=== PATIENT | female | born 1955 | race Caucasian/White ===

== ENCOUNTER 2016-08-11 13:32 | Outpatient (CLI) | payer BC ==
--- NOTE | 2016-08-26 19:37 | Mammography Report ---
DIGITAL SCREENING MAMMOGRAM: 08/11/2016 CLINICAL INDICATION: A 61-year-old nulliparous patient with history of benign left breast biopsy for screening. COMPARISON: Films from [place], [place] dated 05/08/2013, 04/24/2012, 02/24/2011, 03/23/2010, 11/2009, 03/18/2009. TECHNIQUE: Routine CC and MLO projections were obtained of the breasts. The breasts again demonstrate heterogeneously dense fibroglandular parenchyma bilaterally. Coarse an d punctate, typically benign calcifications are present. No suspicious masses, clustered microcalcif ications, or regions of architectural distortion are identified. IMPRESSION: BENIGN FINDINGS. RECOMMENDATION: ROUTINE ANNUAL SCREENING UNLESS OTHERWISE CLINICALLY INDICATED. BIRADS CATEGORY: 2, BENIGN FINDINGS. STANDARD QUALIFYING STATEMENTS 1. This examination was reviewed with the aid of Computed-Aided Detection (CAD). 2. A negative or benign imaging report should not delay biopsy if clinically suspicious findings are present. Consider surgical consultation if warranted. More than 5% of cancers are not identified b y imaging. 3. Dense breasts may obscure an underlying neoplasm. JOB #: [id number] EXT JOB #:[id number]
== END 2016-08-11 13:33 | disposition home or self-care (01) ==
LOC: DI 13:32
PROVIDERS: ATTEND Physician Assistant
DX: Z12.31 Encounter for screening mammogram for malignant neoplasm of breast (principal)
CPT/HCPCS: 77067

== ENCOUNTER 2016-11-25 13:45 | Outpatient (CLI) | payer BC ==
--- NOTE | 2016-11-25 17:55 | XRAY Report ---
THREE VIEW LUMBAR SPINE: 11/25/2016 CLINICAL INDICATION: Back pain. AP, lateral, coned-down views of the lumbar spine demonstrate moderate degenerative disk and facet di sease. There is no evidence of compression fracture. Degenerative dextroscoliosis is present. The bowel gas pattern is unremarkable. IMPRESSION: MODERATE DEGENERATIVE CHANGES, WITH DEGENERATIVE DEXTROSCOLIOSIS. NO EVIDENCE OF FRACTU RE. JOB #: [id number] EXT JOB #:
--- NOTE | 2016-11-25 17:58 | XRAY Report ---
RIGHT HIP AND PELVIS: 11/25/2016 CLINICAL INDICATION: Right hip pain. Frontal view of the hips and pelvis, and frog-leg lateral view of the right hip demonstrate no eviden ce of fracture or dislocation. The joint spaces are preserved. No radiopaque foreign body is seen i n the soft tissues. IMPRESSION: NORMAL RIGHT HIP AND PELVIS. JOB #: [id number] EXT JOB #:[id number]
== END 2016-11-25 13:46 | disposition home or self-care (01) ==
LOC: DI.S 13:45
PROVIDERS: ATTEND Physician Assistant
DX: M25.551 Pain in right hip (principal); M51.36 Other intervertebral disc degeneration, lumbar region; M47.896 Other spondylosis, lumbar region; M41.86 Other forms of scoliosis, lumbar region
CPT/HCPCS: 72100

== ENCOUNTER 2017-03-08 11:51 | Outpatient (CLI) | payer OTHER ==
--- NOTE | 2017-03-08 21:02 | XRAY Report ---
DATE OF SERVICE: 03/08/2017 COMPLETE CERVICAL SPINE: 03/08/2017 CLINICAL INDICATION: Pain. AP, lateral, oblique, odontoid views of the cervical spine demonstrate moderate degenerative disk and facet disease. There is right worse than left osseous neural foraminal narrowing, worst at C5-6. There is no evidence of acute fracture. The prevertebral soft tissues are unremarkable. IMPRESSION: Moderate degenerative changes, with right worse than left osseous neural foraminal narrowing. TD: 03/08/2017 22:01
== END 2017-03-08 11:52 | disposition home or self-care (01) ==
LOC: DI.S 11:51
PROVIDERS: ATTEND Physician Assistant
DX: M50.30 Other cervical disc degeneration, unspecified cervical region (principal); M47.892 Other spondylosis, cervical region
CPT/HCPCS: 72050

== ENCOUNTER 2017-11-08 20:10 | Outpatient (CLI) | payer OTHER | END 2017-11-08 20:11 | disposition critical access hospital (66) | LOC: EMS 20:10 | PROVIDERS: ATTEND Surgery | DX: T63.441A Toxic effect of venom of bees, accidental (unintentional), initial encounter (principal); L50.9 Urticaria, unspecified; R60.0 Localized edema; Y92.007 Garden or yard of unspecified non-institutional (private) residence as the place of occurrence of the external cause | CPT/HCPCS: A0425; A0427 ==

== ENCOUNTER 2017-11-08 20:46 | Emergency (ER) | payer OTHER ==
--- NOTE | 2017-11-08 21:42 | ED Physician Documentation ---
History of Present Illness - Stated complaint Stated Complaint: BEE STING - Chief complaint Chief Complaint: Allergic Rx - History obtained from History obtained from: Patient - History of Present Illness Timing: Enter time (18:30), Today Pain level now: 0 Improved by: benadryl, epinephrine (given by medics) - Additonal information Additional information: stung by flying insect 6:30 pm tonight, rapid onset of diffuse pruritic rash, facial flushing and swelling including lips, hoarse voice, watery eyes and sinus drainage. she denies feeling lightheaded or dyspneic at any time and did not have sensation of throat swelling or constriction. took benadryl but then noticed it had . medics gave benadryl and IM epinephrine with rapid improvement in symptoms. by the time of this evaluation, she only c/o pruritic rash on trunk and right ankle (where she was stung). Review of Systems Cardiac: reports: Reviewed and negative Respiratory: reports: Reviewed and negative GI: reports: Reviewed and negative Skin: reports: Rash, Bite / sting PD PAST MEDICAL HISTORY - Past Medical History Cardiovascular: High cholesterol Respiratory: None Endocrine/Autoimmune: None GI: Diverticulitis : None HEENT: Other Psych: None Musculoskeletal: Gout Derm: None - Past Surgical History Ortho: Other HEENT: Tonsil/Adenoidectomy - Present Medications Home Medications: Ambulatory Orders Medication Instructions Recorded Confirmed Lovastatin 20 mg PO DAILY 10/14/12 09/01/15 Progesterone,Micronized 5 mg PO DAILY 10/14/12 09/01/15 [Progesterone] Epinephrine [Epipen 2-Constantine] 0.3 mg IJ ONCE PRN #1 auto.injct 11/08/17 predniSONE [Prednisone] 40 mg PO DAILY #4 tablet 11/08/17 - Allergies Allergies/Adverse Reactions: Allergies Allergy/AdvReac Type Severity Reaction Status Date / Time procaine HCl * Allergy Rash Verified 11/08/17 20:50 [From Novocain] amoxicillin trihydrate * AdvReac Hallucinati Verified 11/08/17 20:50 [From Augmentin] ons potassium clavulanate * AdvReac Hallucinati Verified 11/08/17 20:50 [From Augmentin] ons - Social History Does the pt smoke?: No Smoking Status: Never smoker Does the pt drink ETOH?: No - Immunizations Immunizations are current?: Yes PD ED PE NORMAL - Vitals Vital signs reviewed: Yes - General General: Alert and oriented X 3, No acute distress, Well developed/nourished - HEENT HEENT: Moist mucous membranes, Pharynx benign - Cardiac Cardiac: RRR, No murmur - Respiratory Respiratory: No respiratory distress, Clear bilaterally - Extremities Extremities: No edema - Neuro Neuro: Alert and oriented X 3 PD ED PE EXPANDED - Derm Derm: Urticaria (lower abdomen and back. few hives right ankle; no FB visualized) Results - Vitals Vitals: Oxygen O2 Source Room air PD MEDICAL DECISION MAKING - ED course Complexity details: considered differential, d/w patient - Sepsis Event Vital Signs: Oxygen O2 Source Room air Departure - Departure Disposition: 01 Home, Self Care Clinical Impression: Allergic reaction to bee sting Condition: Good Instructions: ED Bite Sting Insect Gen Allergic React Follow-Up: Irene Steiner PA [Primary Care Provider] - Prescriptions: Epinephrine [Epipen 2-Constantine] 0.3 mg IJ ONCE PRN #1 auto.injct PRN Reason: Anaphylaxis predniSONE [Prednisone] 40 mg PO DAILY #4 tablet Comments: Continue the benadryl 25mg-50mg by mouth every 6 hours as needed for symptoms Discharge Date/Time: 11/08/17 22:26
[2017-11-08] MEDS ORDERED: methylPREDNISolone SUCCINATE 125 MG/2 ML VIAL IVP STA (22:02)
[2017-11-08 22:20] VITALS: BP 128/74
== END 2017-11-08 22:26 | disposition home or self-care (01) ==
LOC: EDUNIT# → ED 20:46
DX: T63.441A Toxic effect of venom of bees, accidental (unintentional), initial encounter (principal); L50.9 Urticaria, unspecified
CPT/HCPCS: 96374; 99283

== ENCOUNTER 2018-08-07 13:07 | Outpatient (CLI) | payer OTHER ==
--- NOTE | 2018-08-07 16:14 | XRAY Report ---
Reason: PAIN IN RIGHT ANKLE AND JOINTS OF RIGHT FOOT Procedure Date: 08/07/2018 Accession Number: [id number] / [id number] Procedure: XR - Ankle 3 View RT CPT Code: FULL RESULT: EXAM: RIGHT ANKLE RADIOGRAPHY EXAM DATE: 08/07/2018 01:31 PM. CLINICAL HISTORY: PAIN IN RIGHT ANKLE AND JOINTS OF RIGHT FOOT. The patient fell and twisted her ankle approximately 1 month ago. Persistent right ankle pain. COMPARISON: None. TECHNIQUE: 3 views. FINDINGS: Bones: Normal. No fractures or bone lesions. Joints: Normal. No effusion. No subluxations. The ankle mortise is normally aligned. Soft Tissues: Normal. No soft tissue swelling. IMPRESSION: No fracture or dislocation of the ankle is detected. RADIA
== END 2018-08-07 13:08 | disposition home or self-care (01) ==
LOC: DI 13:07
PROVIDERS: ATTEND Nurse Practitioner Family
DX: M25.571 Pain in right ankle and joints of right foot (principal)

== ENCOUNTER 2019-01-17 10:44 | Outpatient (CLI) | payer OTHER | END 2019-01-17 10:45 | disposition short-term general hospital (02) | LOC: EMS 10:44 | PROVIDERS: ATTEND Surgery | DX: R55 Syncope and collapse (principal); H53.8 Other visual disturbances; W10.9XXA Fall (on) (from) unspecified stairs and steps, initial encounter; Y92.008 Other place in unspecified non-institutional (private) residence as the place of occurrence of the external cause | CPT/HCPCS: A0425; A0429 ==

== ENCOUNTER 2020-10-15 11:19 | Outpatient (CLI) | payer MEDICARE ==
--- NOTE | 2020-10-15 13:40 | Ultrasound Report ---
PROCEDURE: Carotid Doppler Complete INDICATIONS: TRANSIENT VISUAL LOSS TECHNIQUE: Color and pulse Doppler interrogation was performed of both carotid systems, with image documentation and velocity measurements. COMPARISON: None. FINDINGS: Right side: Brachial blood pressure: 145/79 mm Hg. Common carotid artery peak systolic velocity: 77 cm/sec. Internal carotid artery peak systolic velocity: 84 cm/sec. Internal carotid artery end diastolic velocity: 29 cm/sec. External carotid artery peak systolic velocity: 95 cm/sec. ICA/CCA peak systolic ratio: 1.1 . Anne scale imaging description: Mild calcific and soft plaque Percent internal carotid artery stenosis: Less than 50% stenosis . Vertebral artery: Flow direction is antegrade. Left side: Brachial blood pressure: 138/79 mm Hg. Common carotid artery peak systolic velocity: 89 cm/sec. Internal carotid artery peak systolic velocity: 80 cm/sec. Internal carotid artery end diastolic velocity: 33 cm/sec. External carotid artery peak systolic velocity: 86 cm/sec. ICA/CCA peak systolic ratio: 0.9 . Anne scale imaging description: Mild soft plaque Percent internal carotid artery stenosis: Less than 50% stenosis. . Vertebral artery: Flow direction is antegrade. IMPRESSION: No hemodynamically significant stenosis found through the carotid arteries bilaterally. Mild calcific and soft plaque. Incidental note was made of several small thyroid nodules which could be further as sessed by dedicated thyroid ultrasound. The estimate of stenosis included in the report of the imaging study was calculated using the NASCET method Reviewed by: Karsten Hayden MD on 10/15/2020 1:38 PM PDT Approved by: Karsten Hayden MD on 10/15/2020 1:38 PM PDT Station ID: [id number]
== END 2020-10-15 11:20 | disposition home or self-care (01) ==
LOC: DI 11:19
PROVIDERS: ATTEND Physician Assistant
DX: H53.121 Transient visual loss, right eye (principal); I65.23 Occlusion and stenosis of bilateral carotid arteries
CPT/HCPCS: 93880

== ENCOUNTER 2020-11-12 13:59 | Outpatient (CLI) | payer MEDICARE ==
--- NOTE | 2020-11-12 16:05 | Ultrasound Report ---
PROCEDURE: Head or Neck Soft Tissue INDICATIONS: THYROID NODULE TECHNIQUE: Real-time scanning was performed of the thyroid gland, with image documentation. COMPARISON: None. FINDINGS: Right: In the right superior thyroid and there is a solid nodule measuring 1.0 x 0.7 x 0.6 cm, hypoe choic with irregular margins and punctate echogenic foci. Normal size of the right thyroid lobe. Left: In the left mid thyroid there is a hypoechoic solid nodule measuring 0.4 x 0.4 x 0.3 cm, with lobulated margins and no echogenic foci. Normal size of the left thyroid lobe. Isthmus: No nodules. Normal thickness. IMPRESSION: Moderately suspicious right thyroid lobe nodule, for which FNA is recommended. Reviewed by: Shaheed Lemus MD on 11/12/2020 4:04 PM PDT Approved by: Shaheed Lemus MD on 11/12/2020 4:04 PM PDT Station ID: [id number]
== END 2020-11-12 14:00 | disposition home or self-care (01) ==
LOC: DI 13:59
PROVIDERS: ATTEND Physician Assistant
DX: E04.1 Nontoxic single thyroid nodule (principal)

== ENCOUNTER 2021-04-15 10:01 | Outpatient (CLI) | payer MEDICARE ==
[2021-04-15 15:20] LABS: BASOPHILS % (AUTO) 0.6 %; EOSINOPHILS # (AUTO) 0.1 10^3/uL (0.0-0.7); EOSINOPHILS % (AUTO) 2.1 %; HCT - HEMATOCRIT 44.7 % (37.0-47.0); HGB - HEMOGLOBIN 14.7 g/dL (12.0-16.0); LYMPHOCYTES # (AUTO) 2.1 10^3/uL (1.5-3.5); MEAN CORPUSCULAR HGB CONC 32.9 g/dL (32.0-36.0); MEAN CORPUSCULAR VOLUME 97.4 fL (81.0-99.0); MEAN PLATELET VOLUME 10.6 fL (7.9-10.8); MONOCYTES # (AUTO) 0.5 10^3/uL (0.0-1.0); MONOCYTES % (AUTO) 7.6 %; NEUTROPHILS # (AUTO) 3.9 10^3/uL (1.5-6.6); NEUTROPHILS % (AUTO) 58.6 %; PLT - PLATELET COUNT 231 10^3/uL (130-450); RED BLOOD COUNT 4.59 10^6/uL (4.20-5.40); RED CELL DISTRIBUTION WIDTH 12.6 % (12.0-15.0); WHITE BLOOD COUNT 6.7 x10^3/uL (4.8-10.8)
[2021-04-15 15:34] LABS: ALBUMIN 3.8 g/dL (3.2-5.5); ALBUMIN/GLOBULIN RATIO 1.3 (1.0-2.2); ALKALINE PHOSPHATASE 63 IU/L (42-121); ALT ALANINE AMINOTRANSFERASE 23 IU/L (10-60); AST ASPARTATE AMINOTRANSFERASE 19 IU/L (10-42); BILIRUBIN,TOTAL 0.7 mg/dL (0.2-1.0); BUN - BLOOD UREA NITROGEN 16 mg/dL (6-20); CALCIUM 9.5 mg/dL (8.5-10.3); CARBON DIOXIDE - CO2 31 mmol/L (21-32); CHLORIDE 99 mmol/L (101-111); CHOL/HDL RATIO 2.5 (<4.4); CHOLESTEROL 245 mg/dL; CK- CREATINE KINASE 26 IU/L (22-269); CREATININE 0.7 mg/dL (0.4-1.0); GFR - MDRD 84 (>89); GLUCOSE 99 mg/dL (70-100); HDL CHOLESTEROL 98 mg/dL; LDL CHOLESTEROL,CALCULATED 138 mg/dL; LDL/HDL RATIO 1.4 (<4.4); POTASSIUM 3.9 mmol/L (3.5-5.0); SODIUM 138 mmol/L (135-145); TOTAL PROTEIN 6.8 g/dL (6.7-8.2); TRIGLYCERIDES 45 mg/dL; VLDL CHOLESTEROL 9 mg/dL
[2021-04-17 09:06] LABS: HEPATITIS C ANTIBODY NON-REACTIVE (NON-REACTIVE)
== END 2021-04-15 10:02 | disposition home or self-care (01) ==
LOC: LAB.S 10:01
PROVIDERS: ATTEND Internal Medicine
DX: E78.5 Hyperlipidemia, unspecified (principal); Z13.6 Encounter for screening for cardiovascular disorders; Z79.899 Other long term (current) drug therapy; Z11.59 Encounter for screening for other viral diseases; E04.1 Nontoxic single thyroid nodule; C43.9 Malignant melanoma of skin, unspecified
CPT/HCPCS: 36415; 80053; 80061; 82550; 83721; 84443; 85025; 86803

== ENCOUNTER 2021-05-13 07:33 | Day surgery (SDC) | payer MEDICARE ==
[2021-05-13] MEDS ORDERED: LACTATED RINGERS 1,000 ML IV ONE (07:52)
--- NOTE | 2021-05-13 08:01 | ANESTHESIA ---
Pre-Anesthesia VS, & Labs - Diagnosis screening, family history of colon cancer - Procedure colonoscopy Vital Signs: Temp Pulse Resp BP Pulse Ox 36.6 C 75 16 131/84 H 98 05/13/21 07:53 05/13/21 07:53 05/13/21 07:53 05/13/21 07:53 05/13/21 07:53 Height: 5 ft 3 in Weight (kg): 75.6 kg Body Mass Index: 29.5 BMI Classification: Overweight - NPO >8 hours - Is Patient ?: No - Lab Results Lab results reviewed: Yes Home Medications and Allergies Home Medications: Ambulatory Orders Venlafaxine [Effexor] 37.5 mg PO DAILY 05/12/21 Lovastatin 60 mg PO DAILY 10/14/12 Progesterone,Micronized [Progesterone] 5 mg PO DAILY 10/14/12 Venlafaxine [Effexor] 37.5 mg PO DAILY 05/12/21 Allergies/Adverse Reactions: Allergies Allergy/AdvReac Type Severity Reaction Status Date / Time procaine HCl * Allergy Rash Verified 05/13/21 07:58 [From Novocain] amoxicillin trihydrate * AdvReac Hallucinati Verified 05/13/21 07:58 [From Augmentin] ons potassium clavulanate * AdvReac Hallucinati Verified 05/13/21 07:58 [From Augmentin] ons Anes History & Medical History - Anesthetic History Anesthesia Complications: reports: No previous complications Family history of Anesthesia Complications: Denies Family history of Malignant Hyperthermia: Denies - Medical History Cardiovascular: reports: High cholesterol Pulmonary: reports: None Gastrointestinal: reports: Diverticulitis Urinary: reports: None Musculoskeletal: reports: Gout Endocrine/Autoimmune: reports: None Skin: reports: None Smoking Status: Never smoker - Surgical History Eyes Ears Nose Throat (EENT): reports: Tonsil/Adenoidectomy Orthopedic: reports: Other Exam General: Alert, Oriented x3, Cooperative, No acute distress Dental: WNL Mouth Openin Fingerbreadth Neck Mobility: Normal Plan Anesthesia Type: General, Total IV Consent for Procedure(s) Verified and Reviewed: Yes Code Status: Attempt Resuscitation ASA classification: 2-Mild systemic disease Is this case an emergency?: No
[2021-05-13] MEDS ORDERED: LACTATED RINGERS 600 ML IV ONE (09:35)
[2021-05-13 10:04] VITALS: BP 92/67
--- NOTE | 2021-05-13 10:40 | ANESTHESIA POST OP EVALUATION ---
Anesthesia Post Eval - Post Anesthesia Eval Vitals: Last Vital Signs Temp 36.5 C 05/13/21 10:03 Pulse 90 05/13/21 10:03 Resp 16 05/13/21 10:03 BP 92/67 05/13/21 10:03 Pulse Ox 100 05/13/21 10:03 CV Function Including HR & BP: Stable Pain Control: Satisfactory Nausea & Vomiting: Negative Mental Status: Baseline Respiratory Status: Airway Patent Hydration Status: Satisfactory Anesthesia Complications: None
== END 2021-05-13 07:34 | disposition home or self-care (01) ==
LOC: SDS 07:33
PROVIDERS: ATTEND Surgery
PROC: 0DBP8ZX Excision of Rectum, Via Natural or Artificial Opening Endoscopic, Diagnostic (ICD-10-PCS; principal; 2021-05-13 09:00)
DX: Z12.11 Encounter for screening for malignant neoplasm of colon (principal); K62.1 Rectal polyp; K64.8 Other hemorrhoids; Z80.0 Family history of malignant neoplasm of digestive organs; Z80.9 Family history of malignant neoplasm, unspecified
CPT/HCPCS: 45380; J7120

== ENCOUNTER 2021-06-09 14:56 | Outpatient (CLI) | payer MEDICARE ==
--- NOTE | 2021-06-11 15:57 | Mammography Report ---
BILATERAL DIGITAL SCREENING MAMMOGRAM 3D/2D: 06/09/2021 CLINICAL: Routine screening. Family history of breast cancer. Comparison is made to exams dated: 08/11/2016 mammogram and 05/08/2013 mammogram - [facility]. The tissue of both breasts is predominantly fatty. There are grouped calcifications in the right breast middle depth lateral region seen on the cranioca udal view only. There are grouped linear fine punctate calcifications in the left breast central to the nipple middle depth. No other significant masses or calcifications are seen in either breast. IMPRESSION: INCOMPLETE: NEEDS ADDITIONAL IMAGING EVALUATION The grouped calcifications in the right breast middle depth lateral region seen on the craniocaudal v iew only are indeterminate. Additional views with possible ultrasound are recommended. The grouped linear fine punctate calcifications in the left breast central to the nipple middle depth are indeterminate. Additional views with possible ultrasound are recommended. This exam was interpreted at Station ID: [id number]. NOTE: For mammograms, a report in lay terms will be sent to the patient. Approximately 15% of breast malignancies will not be visualized mammographically. In the management of a palpable breast mass, a negative mammogram must not discourage biopsy of a clinically suspicious lesion. Electronically Signed By: Shaheed Lemus M.D., jr/lew:06/10/2021 11:51:24 ACR BI-RADS Category 0: Incomplete 3340F PARENCHYMAL PATTERN: (F) - The breast(s) demonstrate(s) diffuse fatty replacement. BI-RADS CATEGORY: (0) - 0 RECOMMENDATION: (ADDMAM) - Recommend additional mammographic views. [id number] Immediate follow-up LATERALITY: (B)
== END 2021-06-09 14:57 | disposition home or self-care (01) ==
LOC: DI.S 14:56
PROVIDERS: ATTEND Internal Medicine
DX: Z12.31 Encounter for screening mammogram for malignant neoplasm of breast (principal); Z80.3 Family history of malignant neoplasm of breast; R92.8 Other abnormal and inconclusive findings on diagnostic imaging of breast

== ENCOUNTER 2021-08-25 12:47 | Outpatient (CLI) | payer MEDICARE ==
--- NOTE | 2021-08-25 15:45 | Ultrasound Report ---
PROCEDURE: Head or Neck Soft Tissue. Thyroid ultrasound. INDICATIONS: THYROID NODULE TECHNIQUE: Real-time scanning was performed of the thyroid gland, with image documentation. COMPARISON: Thyroid ultrasound 11/12/2020. FINDINGS: FINDINGS: Right: Thyroid lobe measures 4.3 x 1.8 x 1.6 cm, and is homogeneous in echotexture. Left: Thyroid lobe measures 4.2 x 1.2 x 1.5 cm, and is homogenous in echotexture. Isthmus: 2 mm thick. Nodule number: 1 Location: Right upper lobe Size: 1.0 x 0.6 x 0.8 cm. Previously 1.0 x 0.6 x 0.7 cm, no significant change. Composition: Solid Echogenicity: Hypoechoic Shape: wider than tall Margins: Irregular Echogenic foci: Punctate Total points: 7 ACR TI-RADS category: 5, suspicious Nodule number: 2 Location: Left mid lobe Size: 0.4 x 0.3 x 0.4 cm, unchanged. Composition: Predominantly solid Echogenicity: Isoechoic Shape: wider than tall. Margins: Smooth Echogenic foci: None Total points: 3 ACR TI-RADS category: 3, mildly suspicious. Nodule number: 3 Location: Left lobe, inferior Size: 0.7 x 0.4 x 0.6 cm. Newly apparent. Composition: Solid Echogenicity: Isoechoic Shape: wider than tall Margins: Ill-defined Echogenic foci: None Total points: 3 ACR TI-RADS category: 3, mildly suspicious. IMPRESSION: 1. No significant change in the previously demonstrated 1.0 cm nodule at the right mid thyroid gland. The nodule meets TI-RADS criteria for FNA recommendation. 2. Other small thyroid nodules are present not meeting criteria for FNA recommendation. ACR TI-RADS definitions and recommendations: TI-RADS 1 (benign): 0 points. FNA not needed. TI-RADS 2 (not suspicious): 2 points. FNA not needed. TI-RADS 3 (mildly suspicious): 3 points. FNA if 2.5 cm or larger, follow up if 1.5 cm or larger (at 1, 3, and 5 years). TI-RADS 4 (moderately suspicious): 4-6 points. FNA if 1.5 cm or larger, follow up if 1 cm or larger (at 1, 2, 3, and 5 years). TI-RADS 5 (highly suspicious): 7 points or more. FNA if 1 cm or larger, follow up if 0.5 cm or larger (every year for 5 years). Reviewed by: Jayden Pate MD on 08/25/2021 3:43 PM PDT Approved by: Jayden Pate MD on 08/25/2021 3:43 PM PDT Station ID: [id number]
== END 2021-08-25 12:48 | disposition home or self-care (01) ==
LOC: DI 12:47
PROVIDERS: ATTEND Internal Medicine
DX: E04.2 Nontoxic multinodular goiter (principal)

== ENCOUNTER 2022-06-09 11:57 | Outpatient (CLI) | payer MEDICARE ==
[2022-06-09 12:19] LABS: BASOPHILS % (AUTO) 0.7 %; EOSINOPHILS # (AUTO) 0.2 10^3/uL (0.0-0.7); EOSINOPHILS % (AUTO) 2.6 %; HCT - HEMATOCRIT 45.5 % (37.0-47.0); HGB - HEMOGLOBIN 14.6 g/dL (12.0-16.0); LYMPHOCYTES # (AUTO) 2.3 10^3/uL (1.5-3.5); LYMPHOCYTES % (AUTO) 37.7 %; MEAN CORPUSCULAR HEMOGLOBIN 31.3 pg (27.0-31.0); MEAN CORPUSCULAR HGB CONC 32.1 g/dL (32.0-36.0); MEAN CORPUSCULAR VOLUME 97.6 fL (81.0-99.0); MEAN PLATELET VOLUME 10.6 fL (7.9-10.8); MONOCYTES # (AUTO) 0.4 10^3/uL (0.0-1.0); MONOCYTES % (AUTO) 6.6 %; NEUTROPHILS # (AUTO) 3.2 10^3/uL (1.5-6.6); NEUTROPHILS % (AUTO) 52.2 %; PLT - PLATELET COUNT 203 10^3/uL (130-450); RED BLOOD COUNT 4.66 10^6/uL (4.20-5.40); RED CELL DISTRIBUTION WIDTH 12.4 % (12.0-15.0); WHITE BLOOD COUNT 6.1 x10^3/uL (4.8-10.8)
[2022-06-09 12:25] LABS: BILIRUBIN,URINE NEGATIVE (NEGATIVE); GLUCOSE, URINE (UA) NEGATIVE (NEGATIVE); KETONES,URINE (UA) NEGATIVE (NEGATIVE); LEUKOCYTE ESTERASE, URINE NEGATIVE (NEGATIVE); NITRITE,URINE NEGATIVE (NEGATIVE); OCCULT BLOOD,URINE TRACE-LYSE (NEGATIVE); PROTEIN,URINE NEGATIVE (NEGATIVE); UROBILINOGEN,URINE 0.2 (NORMAL) E.U./dL (NORMAL)
[2022-06-09 12:30] LABS: BACTERIA,URINE Rare /HPF (None Seen); CLARITY,URINE CLEAR (CLEAR); RBC,URINE 0-5 /HPF (0-5); SQUAMOUS EPITHELIAL CELL,UR RARE Squamous (<= Few); WBC,URINE 0-3 /HPF (0-5)
[2022-06-09 12:33] LABS: ALBUMIN 4.5 g/dL (3.2-5.5); ALBUMIN/GLOBULIN RATIO 1.8 (1.0-2.2); ALKALINE PHOSPHATASE 66 IU/L (42-121); ALT ALANINE AMINOTRANSFERASE 24 IU/L (10-60); AST ASPARTATE AMINOTRANSFERASE 24 IU/L (10-42); BILIRUBIN,TOTAL 0.8 mg/dL (0.2-1.0); BUN - BLOOD UREA NITROGEN 14 mg/dL (6-20); CALCIUM 9.4 mg/dL (8.5-10.3); CARBON DIOXIDE - CO2 29 mmol/L (21-32); CHLORIDE 102 mmol/L (101-111); CHOL/HDL RATIO 2.4 (<4.4); CHOLESTEROL 240 mg/dL; CREATININE 0.7 mg/dL (0.4-1.0); GFR - MDRD 83 (>89); GLUCOSE 99 mg/dL (70-100); HDL CHOLESTEROL 100 mg/dL; LDL CHOLESTEROL,CALCULATED 126 mg/dL; LDL/HDL RATIO 1.3 (<4.4); POTASSIUM 3.9 mmol/L (3.5-5.0); SODIUM 140 mmol/L (135-145); TRIGLYCERIDES 71 mg/dL; VLDL CHOLESTEROL 14 mg/dL
== END 2022-06-09 11:58 | disposition home or self-care (01) ==
LOC: LAB 11:57
PROVIDERS: ATTEND Internal Medicine
DX: E04.2 Nontoxic multinodular goiter (principal); R23.2 Flushing; N95.1 Menopausal and female climacteric states; Z79.899 Other long term (current) drug therapy; Z80.52 Family history of malignant neoplasm of bladder
CPT/HCPCS: 36415; 80053; 80061; 81001; 83721; 84443; 85025; 87086

== ENCOUNTER 2022-07-25 17:56 | Outpatient (CLI) | payer MEDICARE | END 2022-07-25 23:59 | disposition critical access hospital (66) | LOC: EMS 17:56 | DX: M54.50 Low back pain, unspecified (principal); W01.0XXA Fall on same level from slipping, tripping and stumbling without subsequent striking against object, initial encounter; Y93.01 Activity, walking, marching and hiking; Y92.008 Other place in unspecified non-institutional (private) residence as the place of occurrence of the external cause | CPT/HCPCS: A0425; A0427 ==

== ENCOUNTER 2022-07-25 18:33 | Emergency (ER) | payer MEDICARE ==
--- OUTSIDE RECORDS SUMMARY | 2022-07-25 18:56 | EXTERNAL MEDICAL SUMMARY RPT | Continuity of Care Document ---
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 Name Role Phone Unavailable Unavailable Unavailable Tiana Nolasco Pa-C Unavailable Unavailable Valeri, Provider Unavailable Unavailable Medications date description facility 2022-06-09 00:00 [facility] True 2022-06-11 00:00 [facility] True 2022-07-23 00:00 [facility] True 2022-06-09 00:00 lovastatin [facility] True 2022-06-11 00:00 lovastatin [facility] True 2022-07-23 00:00 lovastatin [facility] True 2022-06-09 00:00 lovastatin [facility] True 2022-06-11 00:00 lovastatin [facility] True 2022-07-23 00:00 lovastatin [facility] True 2022-07-20 00:00 doxycycline monohydrate [facility] True 2022-07-20 00:00 doxycycline monohydrate [facility] True 2022-06-09 00:00 [facility]IN [facility] True 2022-06-11 00:00 [facility]IN [facility] True 2022-07-23 00:00 [facility]IN [facility] True 2022-06-09 00:00 lovastatin [facility] True 2022-06-11 00:00 lovastatin [facility] True 2022-07-23 00:00 lovastatin [facility] True 2022-06-09 00:00 lovastatin [facility] True 2022-06-11 00:00 lovastatin [facility] True 2022-07-23 00:00 lovastatin [facility] True 2022-07-20 00:00 doxycycline monohydrate [facility] True 2022-06-09 00:00 LOVASTATIN [facility] True 2022-06-11 00:00 L[facility]STATIN [facility] True 2022-07-23 00:00 L[facility]STATIN [facility] True 2022-06-09 00:00 lovastatin [facility] True 2022-06-11 00:00 lovastatin [facility] True 2022-07-23 00:00 lovastatin [facility] True 2022-06-09 00:00 lovastatin [facility] True 2022-06-11 00:00 lovastatin [facility] True 2022-07-23 00:00 lovastatin [facility] True 2022-06-09 00:00 L[facility]STATIN [facility] True 2022-06-11 00:00 [facility]STATIN [facility] True 2022-07-23 00:00 LOVASTATIN [facility] True 2022-06-09 00:00 lovastatin [facility] True 2022-06-11 00:00 lovastatin [facility] True 2022-07-23 00:00 lovastatin [facility] True 2022-06-09 00:00 lovastatin [facility] True 2022-06-11 00:00 lovastatin [facility] True 2022-07-23 00:00 lovastatin [facility] True 2022-07-20 00:00 doxycycline monohydrate [facility] True Problems date description facility 2022-06-09 00:00 Other and unspecified hyperlipi demia [facility] True 2022-06-09 00:00 Hyperlipidemia [facility] True 2022-06-09 00:00 Hyperlipidemia, unspecified [facility] True 2022-06-11 00:00 Other and unspecified hyperlipi demia [facility] True 2022-06-11 00:00 Hyperlipidemia [facility] True 2022-06-11 00:00 Hyperlipidemia, unspecified [facility] True 2022-07-20 00:00 Cellulitis and abscess of trunk [facility] True 2022-07-20 00:00 Cellulitis of left lower limb [facility] True 2022-07-20 00:00 Cellulitis of chest wall [facility] True 2022-07-23 00:00 Other and unspecified hyperlipi demia [facility] True 2022-07-23 00:00 Hyperlipidemia [facility] True 2022-07-23 00:00 Hyperlipidemia, unspecified [facility] True Procedures date description facility 2022-07-20 00:00 Visit Code Hold [facility] True Results/Labs test date author facility value unit interpretation Result panel 1 (unknown) (no date) (unknown) [facility] True (no value) (units unknown) (unknown) Result panel 2 (unknown) (no date) (unknown) [facility] True (no value) (units unknown) (unknown) Result panel 3 (unknown) (no date) (unknown) [facility] True (no value) (units unknown) (unknown) Result panel 4 (unknown) (no date) (unknown) [facility] True (no value) (units unknown) (unknown) Result panel 5 (unknown) (no date) (unknown) [facility] True (no value) (units unknown) (unknown) Result panel 6 (unknown) (no date) (unknown) [facility] True (no value) (units unknown) (unknown) Result panel 7 (unknown) (no date) (unknown) [facility] True (no value) (units unknown) (unknown) Result panel 8 (unknown) (no date) (unknown) [facility] True (no value) (units unknown) (unknown) Result panel 9 (unknown) (no date) (unknown) [facility] True (no value) (units unknown) (unknown) Result panel 10 (unknown) (no date) (unknown) [facility] True (no value) (units unknown) (unknown) Result panel 11 (unknown) (no date) (unknown) [facility] True (no value) (units unknown) (unknown) Result panel 12 (unknown) (no date) (unknown) [facility] True (no value) (units unknown) (unknown) Result panel 13 (unknown) (no date) (unknown) [facility] True (no value) (units unknown) (unknown) Result panel 14 (unknown) (no date) (unknown) [facility] True (no value) (units unknown) (unknown) Result panel 15 (unknown) (no date) (unknown) [facility] True (no value) (units unknown) (unknown) Result panel 16 (unknown) (no date) (unknown) [facility] True (no value) (units unknown) (unknown) Result panel 17 (unknown) (no date) (unknown) [facility] True (no value) (units unknown) (unknown) Result panel 18 (unknown) (no date) (unknown) [facility] True (no value) (units unknown) (unknown) Result panel 19 (unknown) (no date) (unknown) [facility] True (no value) (units unknown) (unknown) Result panel 20 (unknown) (no date) (unknown) [facility] True (no value) (units unknown) (unknown) Result panel 21 (unknown) (no date) (unknown) [facility] True (no value) (units unknown) (unknown) Result panel 22 (unknown) (no date) (unknown) [facility] True (no value) (units unknown) (unknown) Result panel 23 (unknown) (no date) (unknown) [facility] True (no value) (units unknown) (unknown) Result panel 24 (unknown) (no date) (unknown) [facility] True (no value) (units unknown) (unknown) Result panel 25 (unknown) (no date) (unknown) [facility] True (no value) (units unknown) (unknown) Result panel 26 (unknown) (no date) (unknown) [facility] True (no value) (units unknown) (unknown) Result panel 27 (unknown) (no date) (unknown) [facility] True (no value) (units unknown) (unknown) Result panel 28 (unknown) (no date) (unknown) [facility] True (no value) (units unknown) (unknown) Result panel 29 (unknown) (no date) (unknown) [facility] True (no value) (units unknown) (unknown) Result panel 30 (unknown) (no date) (unknown) [facility] True (no value) (units unknown) (unknown) Result panel 31 (unknown) (no date) (unknown) [facility] True (no value) (units unknown) (unknown) Result panel 32 (unknown) (no date) (unknown) [facility] True (no value) (units unknown) (unknown) Result panel 33 (unknown) (no date) (unknown) [facility] True (no value) (units unknown) (unknown) Result panel 34 (unknown) (no date) (unknown) [facility] True (no value) (units unknown) (unknown) Result panel 35 (unknown) (no date) (unknown) [facility] True (no value) (units unknown) (unknown) Result panel 36 (unknown) (no date) (unknown) [facility] True (no value) (units unknown) (unknown) Result panel 37 (unknown) (no date) (unknown) [facility] True (no value) (units unknown) (unknown) Result panel 38 (unknown) (no date) (unknown) [facility] True (no value) (units unknown) (unknown) Result panel 39 (unknown) (no date) (unknown) [facility] True (no value) (units unknown) (unknown) Result panel 40 (unknown) (no date) (unknown) [facility] True (no value) (units unknown) (unknown) Result panel 41 (unknown) (no date) (unknown) [facility] True (no value) (units unknown) (unknown) Result panel 42 (unknown) (no date) (unknown) [facility] True (no value) (units unknown) (unknown) Result panel 43 (unknown) (no date) (unknown) [facility] True (no value) (units unknown) (unknown) Result panel 44 (unknown) (no date) (unknown) [facility] True (no value) (units unknown) (unknown) Result panel 45 (unknown) (no date) (unknown) [facility] True (no value) (units unknown) (unknown) Result panel 46 (unknown) (no date) (unknown) [facility] True (no value) (units unknown) (unknown) Result panel 47 (unknown) (no date) (unknown) [facility] True (no value) (units unknown) (unknown) Result panel 48 (unknown) (no date) (unknown) [facility] True (no value) (units unknown) (unknown) Result panel 49 (unknown) (no date) (unknown) [facility] True (no value) (units unknown) (unknown) Result panel 50 (unknown) (no date) (unknown) [facility] True (no value) (units unknown) (unknown) Result panel 51 (unknown) (no date) (unknown) [facility] True (no value) (units unknown) (unknown) Result panel 52 (unknown) (no date) (unknown) [facility] True (no value) (units unknown) (unknown) Result panel 53 (unknown) (no date) (unknown) [facility] True (no value) (units unknown) (unknown) Result panel 54 (unknown) (no date) (unknown) [facility] True (no value) (units unknown) (unknown) Result panel 55 (unknown) (no date) (unknown) [facility] True (no value) (units unknown) (unknown) Result panel 56 (unknown) (no date) (unknown) [facility] True (no value) (units unknown) (unknown) Result panel 57 (unknown) (no date) (unknown) [facility] True (no value) (units unknown) (unknown) Result panel 58 (unknown) (no date) (unknown) [facility] True (no value) (units unknown) (unknown) Result panel 59 (unknown) (no date) (unknown) [facility] True (no value) (units unknown) (unknown) Result panel 60 (unknown) (no date) (unknown) [facility] True (no value) (units unknown) (unknown) Result panel 61 (unknown) (no date) (unknown) [facility] True (no value) (units unknown) (unknown) Result panel 62 (unknown) (no date) (unknown) [facility] True (no value) (units unknown) (unknown) Result panel 63 (unknown) (no date) (unknown) [facility] True (no value) (units unknown) (unknown) Result panel 64 (unknown) (no date) (unknown) [facility] True (no value) (units unknown) (unknown) Result panel 65 (unknown) (no date) (unknown) [facility] True (no value) (units unknown) (unknown) Result panel 66 (unknown) (no date) (unknown) [facility] True (no value) (units unknown) (unknown) Result panel 67 (unknown) (no date) (unknown) [facility] True (no value) (units unknown) (unknown) Result panel 68 (unknown) (no date) (unknown) [facility] True (no value) (units unknown) (unknown) Result panel 69 (unknown) (no date) (unknown) [facility] True (no value) (units unknown) (unknown) Result panel 70 (unknown) (no date) (unknown) [facility] True (no value) (units unknown) (unknown) Result panel 71 (unknown) (no date) (unknown) [facility] True (no value) (units unknown) (unknown) Result panel 72 (unknown) (no date) (unknown) [facility] True (no value) (units unknown) (unknown) Result panel 73 (unknown) (no date) (unknown) [facility] True (no value) (units unknown) (unknown) Result panel 74 (unknown) (no date) (unknown) [facility] True (no value) (units unknown) (unknown) Result panel 75 (unknown) (no date) (unknown) [facility] True (no value) (units unknown) (unknown) Result panel 76 (unknown) (no date) (unknown) [facility] True (no value) (units unknown) (unknown) Result panel 77 (unknown) (no date) (unknown) [facility] True (no value) (units unknown) (unknown) Result panel 78 (unknown) (no date) (unknown) [facility] True (no value) (units unknown) (unknown) Result panel 79 (unknown) (no date) (unknown) [facility] True (no value) (units unknown) (unknown) Result panel 80 (unknown) (no date) (unknown) [facility] True (no value) (units unknown) (unknown) Result panel 81 (unknown) (no date) (unknown) [facility] True (no value) (units unknown) (unknown) Result panel 82 (unknown) (no date) (unknown) [facility] True (no value) (units unknown) (unknown) Result panel 83 (unknown) (no date) (unknown) [facility] True (no value) (units unknown) (unknown) Result panel 84 (unknown) (no date) (unknown) [facility] True (no value) (units unknown) (unknown) Result panel 85 (unknown) (no date) (unknown) [facility] True (no value) (units unknown) (unknown) Result panel 86 (unknown) (no date) (unknown) [facility] True (no value) (units unknown) (unknown) Result panel 87 (unknown) (no date) (unknown) [facility] True (no value) (units unknown) (unknown) Result panel 88 (unknown) (no date) (unknown) [facility] True (no value) (units unknown) (unknown) Result panel 89 (unknown) (no date) (unknown) [facility] True (no value) (units unknown) (unknown) Result panel 90 (unknown) (no date) (unknown) [facility] True (no value) (units unknown) (unknown) Result panel 91 (unknown) (no date) (unknown) [facility] True (no value) (units unknown) (unknown) Result panel 92 (unknown) (no date) (unknown) [facility] True (no value) (units unknown) (unknown) Result panel 93 (unknown) (no date) (unknown) [facility] True (no value) (units unknown) (unknown) Result panel 94 (unknown) (no date) (unknown) [facility] True (no value) (units unknown) (unknown) Result panel 95 (unknown) (no date) (unknown) [facility] True (no value) (units unknown) (unknown) Result panel 96 (unknown) (no date) (unknown) [facility] True (no value) (units unknown) (unknown) Result panel 97 (unknown) (no date) (unknown) [facility] True (no value) (units unknown) (unknown) Result panel 98 (unknown) (no date) (unknown) [facility] True (no value) (units unknown) (unknown) Result panel 99 (unknown) (no date) (unknown) [facility] True (no value) (units unknown) (unknown) Result panel 100 (unknown) (no date) (unknown) [facility] True (no value) (units unknown) (unknown) Result panel 101 (unknown) (no date) (unknown) [facility] True (no value) (units unknown) (unknown) Result panel 102 (unknown) (no date) (unknown) [facility] True (no value) (units unknown) (unknown) Result panel 103 (unknown) (no date) (unknown) [facility] True (no value) (units unknown) (unknown) Result panel 104 (unknown) (no date) (unknown) [facility] True (no value) (units unknown) (unknown) Result panel 105 (unknown) (no date) (unknown) [facility] True (no value) (units unknown) (unknown) Result panel 106 (unknown) (no date) (unknown) [facility] True (no value) (units unknown) (unknown) Result panel 107 (unknown) (no date) (unknown) [facility] True (no value) (units unknown) (unknown) Result panel 108 (unknown) (no date) (unknown) [facility] True (no value) (units unknown) (unknown) Result panel 109 (unknown) (no date) (unknown) [facility] True (no value) (units unknown) (unknown) Result panel 110 (unknown) (no date) (unknown) [facility] True (no value) (units unknown) (unknown) Result panel 111 (unknown) (no date) (unknown) [facility] True (no value) (units unknown) (unknown) Result panel 112 (unknown) (no date) (unknown) [facility] True (no value) (units unknown) (unknown) Result panel 113 (unknown) (no date) (unknown) [facility] True (no value) (units unknown) (unknown) Result panel 114 (unknown) (no date) (unknown) [facility] True (no value) (units unknown) (unknown) Result panel 115 (unknown) (no date) (unknown) [facility] True (no value) (units unknown) (unknown) Result panel 116 (unknown) (no date) (unknown) [facility] True (no value) (units unknown) (unknown) Result panel 117 (unknown) (no date) (unknown) [facility] True (no value) (units unknown) (unknown) Result panel 118 (unknown) (no date) (unknown) [facility] True (no value) (units unknown) (unknown) Result panel 119 (unknown) (no date) (unknown) [facility] True (no value) (units unknown) (unknown) Result panel 120 (unknown) (no date) (unknown) [facility] True (no value) (units unknown) (unknown) Result panel 121 (unknown) (no date) (unknown) [facility] True (no value) (units unknown) (unknown) Result panel 122 (unknown) (no date) (unknown) [facility] True (no value) (units unknown) (unknown) Result panel 123 (unknown) (no date) (unknown) [facility] True (no value) (units unknown) (unknown) Result panel 124 (unknown) (no date) (unknown) [facility] True (no value) (units unknown) (unknown) Result panel 125 (unknown) (no date) (unknown) [facility] True (no value) (units unknown) (unknown) Result panel 126 (unknown) (no date) (unknown) [facility] True (no value) (units unknown) (unknown) Result panel 127 (unknown) (no date) (unknown) [facility] True (no value) (units unknown) (unknown) Result panel 128 (unknown) (no date) (unknown) [facility] True (no value) (units unknown) (unknown) Result panel 129 (unknown) (no date) (unknown) [facility] True (no value) (units unknown) (unknown) Result panel 130 (unknown) (no date) (unknown) [facility] True (no value) (units unknown) (unknown) Result panel 131 (unknown) (no date) (unknown) [facility] True (no value) (units unknown) (unknown) Result panel 132 (unknown) (no date) (unknown) [facility] True (no value) (units unknown) (unknown) Result panel 133 (unknown) (no date) (unknown) [facility] True (no value) (units unknown) (unknown) Result panel 134 (unknown) (no date) (unknown) [facility] True (no value) (units unknown) (unknown) Result panel 135 (unknown) (no date) (unknown) [facility] True (no value) (units unknown) (unknown) Result panel 136 (unknown) (no date) (unknown) [facility] True (no value) (units unknown) (unknown) Result panel 137 (unknown) (no date) (unknown) [facility] True (no value) (units unknown) (unknown) Result panel 138 (unknown) (no date) (unknown) [facility] True (no value) (units unknown) (unknown) Result panel 139 (unknown) (no date) (unknown) [facility] True (no value) (units unknown) (unknown) Result panel 140 (unknown) (no date) (unknown) [facility] True (no value) (units unknown) (unknown) Result panel 141 (unknown) (no date) (unknown) [facility] True (no value) (units unknown) (unknown) Result panel 142 (unknown) (no date) (unknown) [facility] True (no value) (units unknown) (unknown) Result panel 143 (unknown) (no date) (unknown) [facility] True (no value) (units unknown) (unknown) Result panel 144 (unknown) (no date) (unknown) [facility] True (no value) (units unknown) (unknown) Result panel 145 (unknown) (no date) (unknown) [facility] True (no value) (units unknown) (unknown) Result panel 146 (unknown) (no date) (unknown) [facility] True (no value) (units unknown) (unknown) Result panel 147 (unknown) (no date) (unknown) [facility] True (no value) (units unknown) (unknown) Result panel 148 (unknown) (no date) (unknown) [facility] True (no value) (units unknown) (unknown) Result panel 149 (unknown) (no date) (unknown) [facility] True (no value) (units unknown) (unknown) Result panel 150 (unknown) (no date) (unknown) [facility] True (no value) (units unknown) (unknown) Result panel 151 (unknown) (no date) (unknown) [facility] True (no value) (units unknown) (unknown) Result panel 152 (unknown) (no date) (unknown) [facility] True (no value) (units unknown) (unknown) Result panel 153 (unknown) (no date) (unknown) [facility] True (no value) (units unknown) (unknown) Result panel 154 (unknown) (no date) (unknown) [facility] True (no value) (units unknown) (unknown) Result panel 155 (unknown) (no date) (unknown) [facility] True (no value) (units unknown) (unknown) Result panel 156 (unknown) (no date) (unknown) [facility] True (no value) (units unknown) (unknown) Result panel 157 (unknown) (no date) (unknown) [facility] True (no value) (units unknown) (unknown) Result panel 158 (unknown) (no date) (unknown) [facility] True (no value) (units unknown) (unknown) Result panel 159 (unknown) (no date) (unknown) [facility] True (no value) (units unknown) (unknown) Result panel 160 (unknown) (no date) (unknown) [facility] True (no value) (units unknown) (unknown) Result panel 161 (unknown) (no date) (unknown) [facility] True (no value) (units unknown) (unknown) Result panel 162 (unknown) (no date) (unknown) [facility] True (no value) (units unknown) (unknown) Result panel 163 (unknown) (no date) (unknown) [facility] True (no value) (units unknown) (unknown) Result panel 164 (unknown) (no date) (unknown) [facility] Ture (no value) (units unknown) (unknown) Result panel 165 (unknown) (no date) (unknown) [facility] True (no value) (units unknown) (unknown) Result panel 166 (unknown) (no date) (unknown) [facility] True (no value) (units unknown) (unknown) Result panel 167 (unknown) (no date) (unknown) [facility] True (no value) (units unknown) (unknown) Result panel 168 (unknown) (no date) (unknown) [facility] True (no value) (units unknown) (unknown) Result panel 169 (unknown) (no date) (unknown) [facility] True (no value) (units unknown) (unknown) Result panel 170 (unknown) (no date) (unknown) [facility] True (no value) (units unknown) (unknown) Result panel 171 (unknown) (no date) (unknown) [facility] True (no value) (units unknown) (unknown) Result panel 172 (unknown) (no date) (unknown) [facility] True (no value) (units unknown) (unknown) Result panel 173 (unknown) (no date) (unknown) [facility] True (no value) (units unknown) (unknown) Result panel 174 (unknown) (no date) (unknown) [facility] True (no value) (units unknown) (unknown) Result panel 175 (unknown) (no date) (unknown) [facility] True (no value) (units unknown) (unknown) Result panel 176 (unknown) (no date) (unknown) [facility] True (no value) (units unknown) (unknown) Result panel 177 (unknown) (no date) (unknown) [facility] True (no value) (units unknown) (unknown) Result panel 178 (unknown) (no date) (unknown) [facility] True (no value) (units unknown) (unknown) Result panel 179 (unknown) (no date) (unknown) [facility] True (no value) (units unknown) (unknown) Result panel 180 (unknown) (no date) (unknown) [facility] True (no value) (units unknown) (unknown) Result panel 181 (unknown) (no date) (unknown) [facility] True (no value) (units unknown) (unknown) Result panel 182 (unknown) (no date) (unknown) [facility] True (no value) (units unknown) (unknown) Result panel 183 (unknown) (no date) (unknown) [facility] True (no value) (units unknown) (unknown) Result panel 184 (unknown) (no date) (unknown) [facility] True (no value) (units unknown) (unknown) Result panel 185 (unknown) (no date) (unknown) [facility] True (no value) (units unknown) (unknown) Result panel 186 (unknown) (no date) (unknown) [facility] True (no value) (units unknown) (unknown) Result panel 187 (unknown) (no date) (unknown) [facility] True (no value) (units unknown) (unknown) Result panel 188 (unknown) (no date) (unknown) [facility] True (no value) (units unknown) (unknown) Result panel 189 (unknown) (no date) (unknown) [facility] True (no value) (units unknown) (unknown) Result panel 190 (unknown) (no date) (unknown) [facility] True (no value) (units unknown) (unknown) Result panel 191 (unknown) (no date) (unknown) [facility] True (no value) (units unknown) (unknown) Result panel 192 (unknown) (no date) (unknown) [facility] True (no value) (units unknown) (unknown) Result panel 193 (unknown) (no date) (unknown) [facility] True (no value) (units unknown) (unknown) Result panel 194 (unknown) (no date) (unknown) [facility] True (no value) (units unknown) (unknown) Result panel 195 (unknown) (no date) (unknown) [facility] True (no value) (units unknown) (unknown) Result panel 196 (unknown) (no date) (unknown) [facility] True (no value) (units unknown) (unknown) Result panel 197 (unknown) (no date) (unknown) [facility] True (no value) (units unknown) (unknown) Result panel 198 (unknown) (no date) (unknown) [facility] True (no value) (units unknown) (unknown) Result panel 199 (unknown) (no date) (unknown) [facility] True (no value) (units unknown) (unknown) Result panel 200 (unknown) (no date) (unknown) [facility] True (no value) (units unknown) (unknown) Result panel 201 (unknown) (no date) (unknown) [facility] True (no value) (units unknown) (unknown) Result panel 202 (unknown) (no date) (unknown) [facility] True (no value) (units unknown) (unknown) Result panel 203 (unknown) (no date) (unknown) [facility] True (no value) (units unknown) (unknown) Result panel 204 (unknown) (no date) (unknown) [facility] True (no value) (units unknown) (unknown) Result panel 205 (unknown) (no date) (unknown) [facility] True (no value) (units unknown) (unknown) Result panel 206 (unknown) (no date) (unknown) [facility] True (no value) (units unknown) (unknown) Result panel 207 (unknown) (no date) (unknown) [facility] True (no value) (units unknown) (unknown) Result panel 208 (unknown) (no date) (unknown) [facility] True (no value) (units unknown) (unknown) Result panel 209 (unknown) (no date) (unknown) [facility] True (no value) (units unknown) (unknown) Result panel 210 (unknown) (no date) (unknown) [facility] True (no value) (units unknown) (unknown) Result panel 211 (unknown) (no date) (unknown) [facility] True (no value) (units unknown) (unknown) Result panel 212 (unknown) (no date) (unknown) [facility] True (no value) (units unknown) (unknown) Result panel 213 (unknown) (no date) (unknown) [facility] True (no value) (units unknown) (unknown) Result panel 214 (unknown) (no date) (unknown) [facility] True (no value) (units unknown) (unknown) Result panel 215 (unknown) (no date) (unknown) [facility] True (no value) (units unknown) (unknown) Result panel 216 (unknown) (no date) (unknown) [facility] True (no value) (units unknown) (unknown) Result panel 217 (unknown) (no date) (unknown) [facility] True (no value) (units unknown) (unknown) Result panel 218 (unknown) (no date) (unknown) [facility] True (no value) (units unknown) (unknown) Result panel 219 (unknown) (no date) (unknown) [facility] True (no value) (units unknown) (unknown) Result panel 220 (unknown) (no date) (unknown) [facility] True (no value) (units unknown) (unknown) Result panel 221 (unknown) (no date) (unknown) [facility] True (no value) (units unknown) (unknown) Result panel 222 (unknown) (no date) (unknown) [facility] True (no value) (units unknown) (unknown) Result panel 223 (unknown) (no date) (unknown) [facility] True (no value) (units unknown) (unknown) Result panel 224 (unknown) (no date) (unknown) [facility] True (no value) (units unknown) (unknown) Result panel 225 (unknown) (no date) (unknown) [facility] True (no value) (units unknown) (unknown) Result panel 226 (unknown) (no date) (unknown) [facility] True (no value) (units unknown) (unknown) Result panel 227 (unknown) (no date) (unknown) [facility] True (no value) (units unknown) (unknown) Result panel 228 (unknown) (no date) (unknown) [facility] True (no value) (units unknown) (unknown) Result panel 229 (unknown) (no date) (unknown) [facility] True (no value) (units unknown) (unknown) Result panel 230 (unknown) (no date) (unknown) [facility] True (no value) (units unknown) (unknown) Result panel 231 (unknown) (no date) (unknown) [facility] True (no value) (units unknown) (unknown) Result panel 232 (unknown) (no date) (unknown) [facility] True (no value) (units unknown) (unknown) Result panel 233 (unknown) (no date) (unknown) [facility] True (no value) (units unknown) (unknown) Result panel 234 (unknown) (no date) (unknown) [facility] True (no value) (units unknown) (unknown) Result panel 235 (unknown) (no date) (unknown) [facility] True (no value) (units unknown) (unknown) Result panel 236 (unknown) (no date) (unknown) [facility] True (no value) (units unknown) (unknown) Result panel 237 (unknown) (no date) (unknown) [facility] True (no value) (units unknown) (unknown) Result panel 238 (unknown) (no date) (unknown) [facility] True (no value) (units unknown) (unknown) Result panel 239 (unknown) (no date) (unknown) [facility] True (no value) (units unknown) (unknown) Result panel 240 (unknown) (no date) (unknown) [facility] True (no value) (units unknown) (unknown) Result panel 241 (unknown) (no date) (unknown) [facility] True (no value) (units unknown) (unknown) Result panel 242 (unknown) (no date) (unknown) [facility] True (no value) (units unknown) (unknown) Result panel 243 (unknown) (no date) (unknown) [facility] True (no value) (units unknown) (unknown) Result panel 244 (unknown) (no date) (unknown) [facility] True (no value) (units unknown) (unknown) Result panel 245 (unknown) (no date) (unknown) [facility] True (no value) (units unknown) (unknown) Result panel 246 (unknown) (no date) (unknown) [facility] True (no value) (units unknown) (unknown) Result panel 247 (unknown) (no date) (unknown) [facility] True (no value) (units unknown) (unknown) Result panel 248 (unknown) (no date) (unknown) [facility] True (no value) (units unknown) (unknown) Result panel 249 (unknown) (no date) (unknown) [facility] True (no value) (units unknown) (unknown) Result panel 250 (unknown) (no date) (unknown) [facility] True (no value) (units unknown) (unknown) Result panel 251 (unknown) (no date) (unknown) [facility] True (no value) (units unknown) (unknown) Result panel 252 (unknown) (no date) (unknown) [facility] True (no value) (units unknown) (unknown) Result panel 253 (unknown) (no date) (unknown) [facility] True (no value) (units unknown) (unknown) Result panel 254 (unknown) (no date) (unknown) [facility] True (no value) (units unknown) (unknown) Result panel 255 (unknown) (no date) (unknown) [facility] True (no value) (units unknown) (unknown) Result panel 256 (unknown) (no date) (unknown) [facility] True (no value) (units unknown) (unknown) Result panel 257 (unknown) (no date) (unknown) [facility] True (no value) (units unknown) (unknown) Result panel 258 (unknown) (no date) (unknown) [facility] True (no value) (units unknown) (unknown) Result panel 259 (unknown) (no date) (unknown) [facility] True (no value) (units unknown) (unknown) Result panel 260 (unknown) (no date) (unknown) [facility] True (no value) (units unknown) (unknown) Result panel 261 (unknown) (no date) (unknown) [facility] True (no value) (units unknown) (unknown) Result panel 262 (unknown) (no date) (unknown) [facility] True (no value) (units unknown) (unknown) Result panel 263 (unknown) (no date) (unknown) [facility] True (no value) (units unknown) (unknown) Result panel 264 (unknown) (no date) (unknown) [facility] True (no value) (units unknown) (unknown) Result panel 265 (unknown) (no date) (unknown) [facility] True (no value) (units unknown) (unknown) Result panel 266 (unknown) (no date) (unknown) [facility] True (no value) (units unknown) (unknown) Result panel 267 (unknown) (no date) (unknown) [facility] True (no value) (units unknown) (unknown) Result panel 268 (unknown) (no date) (unknown) [facility] True (no value) (units unknown) (unknown) Result panel 269 (unknown) (no date) (unknown) [facility] True (no value) (units unknown) (unknown) Result panel 270 (unknown) (no date) (unknown) [facility] True (no value) (units unknown) (unknown) Result panel 271 (unknown) (no date) (unknown) [facility] True (no value) (units unknown) (unknown) Result panel 272 (unknown) (no date) (unknown) [facility] True (no value) (units unknown) (unknown) Result panel 273 (unknown) (no date) (unknown) [facility] True (no value) (units unknown) (unknown) Result panel 274 (unknown) (no date) (unknown) [facility] True (no value) (units unknown) (unknown) Result panel 275 (unknown) (no date) (unknown) [facility] True (no value) (units unknown) (unknown) Result panel 276 (unknown) (no date) (unknown) [facility] True (no value) (units unknown) (unknown) Result panel 277 (unknown) (no date) (unknown) [facility] True (no value) (units unknown) (unknown) Result panel 278 (unknown) (no date) (unknown) [facility] True (no value) (units unknown) (unknown) Result panel 279 (unknown) (no date) (unknown) [facility] True (no value) (units unknown) (unknown) Result panel 280 (unknown) (no date) (unknown) [facility] True (no value) (units unknown) (unknown) Result panel 281 (unknown) (no date) (unknown) [facility] True (no value) (units unknown) (unknown) Result panel 282 (unknown) (no date) (unknown) [facility] True (no value) (units unknown) (unknown) Result panel 283 (unknown) (no date) (unknown) [facility] True (no value) (units unknown) (unknown) Result panel 284 (unknown) (no date) (unknown) [facility] True (no value) (units unknown) (unknown) Result panel 285 (unknown) (no date) (unknown) [facility] True (no value) (units unknown) (unknown) Result panel 286 (unknown) (no date) (unknown) [facility] True (no value) (units unknown) (unknown) Result panel 287 (unknown) (no date) (unknown) [facility] True (no value) (units unknown) (unknown) Result panel 288 (unknown) (no date) (unknown) [facility] True (no value) (units unknown) (unknown) Result panel 289 (unknown) (no date) (unknown) [facility] True (no value) (units unknown) (unknown) Result panel 290 (unknown) (no date) (unknown) [facility] True (no value) (units unknown) (unknown) Result panel 291 (unknown) (no date) (unknown) [facility] True (no value) (units unknown) (unknown) Result panel 292 (unknown) (no date) (unknown) [facility] True (no value) (units unknown) (unknown) Result panel 293 (unknown) (no date) (unknown) [facility] True (no value) (units unknown) (unknown) Result panel 294 (unknown) (no date) (unknown) [facility] True (no value) (units unknown) (unknown) Result panel 295 (unknown) (no date) (unknown) [facility] True (no value) (units unknown) (unknown) Result panel 296 (unknown) (no date) (unknown) [facility] True (no value) (units unknown) (unknown) Result panel 297 (unknown) (no date) (unknown) [facility] True (no value) (units unknown) (unknown) Result panel 298 (unknown) (no date) (unknown) [facility] True (no value) (units unknown) (unknown) Result panel 299 (unknown) (no date) (unknown) [facility] True (no value) (units unknown) (unknown) Result panel 300 (unknown) (no date) (unknown) [facility] True (no value) (units unknown) (unknown) Result panel 301 (unknown) (no date) (unknown) [facility] True (no value) (units unknown) (unknown) Result panel 302 (unknown) (no date) (unknown) [facility] True (no value) (units unknown) (unknown) Result panel 303 (unknown) (no date) (unknown) [facility] True (no value) (units unknown) (unknown) Result panel 304 (unknown) (no date) (unknown) [facility] True (no value) (units unknown) (unknown) Result panel 305 (unknown) (no date) (unknown) [facility] True (no value) (units unknown) (unknown) Result panel 306 (unknown) (no date) (unknown) [facility] True (no value) (units unknown) (unknown) Result panel 307 (unknown) (no date) (unknown) [facility] True (no value) (units unknown) (unknown) Result panel 308 (unknown) (no date) (unknown) [facility] True (no value) (units unknown) (unknown) Result panel 309 (unknown) (no date) (unknown) [facility] True (no value) (units unknown) (unknown) Result panel 310 (unknown) (no date) (unknown) [facility] True (no value) (units unknown) (unknown) Result panel 311 (unknown) (no date) (unknown) [facility] True (no value) (units unknown) (unknown) Result panel 312 (unknown) (no date) (unknown) [facility] True (no value) (units unknown) (unknown) Result panel 313 (unknown) (no date) (unknown) [facility] True (no value) (units unknown) (unknown) Result panel 314 (unknown) (no date) (unknown) [facility] True (no value) (units unknown) (unknown) Result panel 315 (unknown) (no date) (unknown) [facility] True (no value) (units unknown) (unknown) Result panel 316 (unknown) (no date) (unknown) [facility] True (no value) (units unknown) (unknown) Result panel 317 (unknown) (no date) (unknown) [facility] True (no value) (units unknown) (unknown) Result panel 318 (unknown) (no date) (unknown) [facility] True (no value) (units unknown) (unknown) Result panel 319 (unknown) (no date) (unknown) [facility] True (no value) (units unknown) (unknown) Result panel 320 (unknown) (no date) (unknown) [facility] True (no value) (units unknown) (unknown) Result panel 321 (unknown) (no date) (unknown) [facility] True (no value) (units unknown) (unknown) Result panel 322 (unknown) (no date) (unknown) [facility] True (no value) (units unknown) (unknown) Result panel 323 (unknown) (no date) (unknown) [facility] True (no value) (units unknown) (unknown) Result panel 324 (unknown) (no date) (unknown) [facility] True (no value) (units unknown) (unknown) Result panel 325 (unknown) (no date) (unknown) [facility] True (no value) (units unknown) (unknown) Result panel 326 (unknown) (no date) (unknown) [facility] True (no value) (units unknown) (unknown) Result panel 327 (unknown) (no date) (unknown) [facility] True (no value) (units unknown) (unknown) Result panel 328 (unknown) (no date) (unknown) [facility] True (no value) (units unknown) (unknown) Result panel 329 (unknown) (no date) (unknown) [facility] True (no value) (units unknown) (unknown) Result panel 330 (unknown) (no date) (unknown) [facility] True (no value) (units unknown) (unknown) Result panel 331 (unknown) (no date) (unknown) [facility] True (no value) (units unknown) (unknown) Result panel 332 (unknown) (no date) (unknown) [facility] True (no value) (units unknown) (unknown) Result panel 333 (unknown) (no date) (unknown) [facility] True (no value) (units unknown) (unknown) Result panel 334 (unknown) (no date) (unknown) [facility] True (no value) (units unknown) (unknown) Result panel 335 (unknown) (no date) (unknown) [facility] True (no value) (units unknown) (unknown) Result panel 336 (unknown) (no date) (unknown) [facility] True (no value) (units unknown) (unknown) Result panel 337 (unknown) (no date) (unknown) [facility] True (no value) (units unknown) (unknown) Result panel 338 (unknown) (no date) (unknown) [facility] True (no value) (units unknown) (unknown) Result panel 339 (unknown) (no date) (unknown) [facility] True (no value) (units unknown) (unknown) Result panel 340 (unknown) (no date) (unknown) [facility] True (no value) (units unknown) (unknown) Result panel 341 (unknown) (no date) (unknown) [facility] True (no value) (units unknown) (unknown) Result panel 342 (unknown) (no date) (unknown) [facility] True (no value) (units unknown) (unknown) Result panel 343 (unknown) (no date) (unknown) [facility] True (no value) (units unknown) (unknown) Result panel 344 (unknown) (no date) (unknown) [facility] True (no value) (units unknown) (unknown) Result panel 345 (unknown) (no date) (unknown) [facility] True (no value) (units unknown) (unknown) Result panel 346 (unknown) (no date) (unknown) [facility] True (no value) (units unknown) (unknown) Result panel 347 (unknown) (no date) (unknown) [facility] True (no value) (units unknown) (unknown) Result panel 348 (unknown) (no date) (unknown) [facility] True (no value) (units unknown) (unknown) Result panel 349 (unknown) (no date) (unknown) [facility] True (no value) (units unknown) (unknown) Result panel 350 (unknown) (no date) (unknown) [facility] True (no value) (units unknown) (unknown) Result panel 351 (unknown) (no date) (unknown) [facility] True (no value) (units unknown) (unknown) Result panel 352 (unknown) (no date) (unknown) [facility] True (no value) (units unknown) (unknown) Result panel 353 (unknown) (no date) (unknown) [facility] True (no value) (units unknown) (unknown) Result panel 354 (unknown) (no date) (unknown) [facility] True (no value) (units unknown) (unknown) Result panel 355 (unknown) (no date) (unknown) [facility] True (no value) (units unknown) (unknown) Result panel 356 (unknown) (no date) (unknown) [facility] True (no value) (units unknown) (unknown) Social History date description facility 2022-07-20 00:00 Never smoker [facility] True Vital Signs date measurement value units 2022-07-20 00:00 BMI 28.62 kg/m2 2022-07-20 00:00 BP_diastolic 71 mmHg 2022-07-20 00:00 BP_systolic 120 mmHg 2022-07-20 00:00 heart_rate 77 /min 2022-07-20 00:00 height_metric 160.02 cm 2022-07-20 00:00 height_standard 63 in 2022-07-20 00:00 respiration_rate 16 /min 2022-07-20 00:00 temperature_metric 36.11 C 2022-07-20 00:00 temperature_standard 97 F 2022-07-20 00:00 weight_metric 73.03 kg 2022-07-20 00:00 weight_standard 161 lb
[2022-07-25] MEDS: HYDROmorphone 1 MG/ML CARPUJECT IVP STA (20:44)
--- NOTE | 2022-07-25 21:17 | CT Report ---
PROCEDURE: LUMBAR SPINE WO INDICATIONS: fall, low back pain TECHNIQUE: Noncontrast 3 mm thick sections acquired from the T12 level to the sacrum. Sagittal and coronal refo rmats were constructed. For radiation dose reduction, the following was used: automated exposure co ntrol, adjustment of mA and/or kV according to patient size. COMPARISON: None. FINDINGS: Image quality: Excellent. Bones: There is preserved bony alignment. There is a minimally depressed superior endplate compressi on fracture of the L1 vertebral body with minimal cortical disruption anteriorly. No suspicious lytic or blastic bony lesions. Central spinal caliber is of normal overall caliber. No pars defects. T12-L1: There is a minimal disc bulge. There is minimal spinal canal narrowing. No neuroforaminal marc rowing. L1-L2: Normal in appearance. L2-L3: No spinal canal or neuroforaminal narrowing. There is mild facet arthropathy bilaterally. L3-L4: No spinal canal or neuroforaminal narrowing. There is moderate facet arthropathy bilaterally . L4-L5: There is a minimal disc bulge. There is moderate to severe facet arthropathy bilaterally. No s ignificant spinal canal or neuroforaminal narrowing. L5-S1: Minimal disc bulge. There is moderate to severe right and moderate left facet arthropathy. No significant spinal canal or neuroforaminal narrowing. Soft tissues: No retroperitoneal masses or hematomas. Visualized aorta is normal in caliber. There is mild dependent atelectasis. IMPRESSION: 1. Minimal superior endplate compression fracture of the L1 vertebral body. No associated retropulsed fragments in spinal canal. 2. No high-grade spinal canal or neuroforaminal narrowing. Reviewed by: Catalino Vásquez MD on 07/25/2022 9:16 PM PDT Approved by: Catalino Vásquez MD on 07/25/2022 9:16 PM PDT Station ID: [id number]
--- NOTE | 2022-07-25 21:40 | ED Physician Documentation ---
PD HPI BACK PAIN - Stated complaint Stated Complaint: GLF, LOW BACK PAIN - Chief complaint Chief Complaint: Trauma Ch/Bk - History obtained from History obtained from: Patient, Family - History of Present Illness Timing - onset: Today Timing - duration: Days (1) Timing - details: Gradual onset Pain level max: 10 Pain level now: 9 Location: Lower Quality: Pain Associated symptoms: No: Fever, Weakness, Numbness, Incontinent of urine, Unable to urinate, Hematuria, Incontinent of stool Improves with: Rest Worsened by: Movement Contributing factors: No: Anticoagulated, Cancer, IVDA - Additional information Additional information: 67-year-old female was at home today when she slipped and fell onto a concrete f niyah landing on her back. She states that she first landed on her buttocks and then fell onto her back, her head landed on a pillow on the ground. No loss of consciousness. No vomiting. No headache. No seizure activity. She is complaining of low back pain, received 50 mcg of fentanyl with EMS. Review of Systems Constitutional: denies: Fever, Chills GI: denies: Vomiting, Diarrhea Skin: denies: Rash Musculoskeletal: denies: Neck pain, Back pain Neurologic: denies: Headache PD PAST MEDICAL HISTORY - Past Medical History Cardiovascular: High cholesterol Respiratory: None Endocrine/Autoimmune: None GI: Diverticulitis : None HEENT: Other Psych: None Musculoskeletal: Gout Derm: None - Past Surgical History Ortho: Other HEENT: Tonsil/Adenoidectomy - Present Medications Home Medications: Ambulatory Orders Medication Instructions Recorded Confirmed Lovastatin 60 mg PO DAILY 10/14/12 05/12/21 Progesterone,Micronized 5 mg PO DAILY 10/14/12 05/12/21 [Progesterone] EPINEPHrine [Epipen 2-Constantine] 0.3 mg IJ ONCE PRN #1 auto.injct 11/08/17 05/12/21 predniSONE [Prednisone] 40 mg PO DAILY #4 tablet 11/08/17 05/12/21 Venlafaxine [Effexor] 37.5 mg PO DAILY 05/12/21 05/12/21 Famotidine [Pepcid] 20 mg PO BID #60 tablet 09/27/21 diphenhydrAMINE [Benadryl] 25 mg PO Q4-6H PRN #20 cap 09/27/21 predniSONE [Deltasone] 60 mg PO DAILY 5 Days #15 tablet 09/27/21 traMADol [Ultram] 50 - 100 mg PO Q6H PRN #20 tablet 07/25/22 - Allergies Allergies/Adverse Reactions: Allergies Allergy/AdvReac Type Severity Reaction Status Date / Time procaine HCl * Allergy Rash Verified 07/25/22 18:45 [From Novocain] amoxicillin trihydrate * AdvReac Hallucinati Verified 07/25/22 18:45 [From Augmentin] ons potassium clavulanate * AdvReac Hallucinati Verified 07/25/22 18:45 [From Augmentin] ons - Social History Does the pt smoke?: No Smoking Status: Never smoker Does the pt drink ETOH?: No - Immunizations Immunizations are current?: Yes PD ED PE NORMAL - Vitals Vital signs reviewed: Yes - General General: Alert and oriented X 3, No acute distress - HEENT HEENT: Atraumatic, PERRL, EOMI, Moist mucous membranes, Pharynx benign - Neck Neck: Supple, no meningeal sign, No bony TTP - Cardiac Cardiac: RRR - Respiratory Respiratory: No respiratory distress, Clear bilaterally - Abdomen Abdomen: Soft, Non tender, Non distended - Back Back: No CVA TTP, Other (Tender to palpation in approximately L1/L2. No step- off or deformity. No swelling. Otherwise normal examination of the C, T, L spines.) - Derm Derm: Warm and dry - Extremities Extremities: No deformity, No tenderness to palpate, Normal ROM s pain - Neuro Neuro: Alert and oriented X 3, No motor deficit, No sensory deficit, Other (Normal bilateral lower extremity patellar and ankle jerk reflexes. Normal great toe extension bilaterally. no saddle anesthesia) - Psych Psych: Normal mood, Normal affect Results - Vitals Vitals: Vital Signs - 24 hr 07/25/22 07/25/22 07/25/22 18:40 20:45 22:23 Temperature 37.1 C Heart Rate 80 87 85 Respiratory 16 18 18 Rate Blood Pressure 134/93 H 144/77 H 148/89 H O2 Saturation 99 99 99 Oxygen O2 Source Room air - Rads (name of study) CT lumbar spine Relevant Findings:: Final report received, See rad report PD Medical Decision Making - ED course Complexity details: reviewed results, re-evaluated patient, considered differential, d/w patient ED course: 59-year-old female status post ground-level fall at home. No head or neck pain. Her head landed on a pillow on the floor after she had hit onto her buttocks and then fell backwards. She has upper lumbar spine pain. Her CT scan is consistent with a mild endplate compression fracture of L1. No retropulsion. Appears to be a stable fracture. Pain well controlled here with a dose of IV Dilaudid, 0.5 mg. We will prescribe pain medication for home. She was given Percocet for home tonight. She request tramadol for home for pain. Neurovascular intact. No other acute injuries. Patient is ambulating well in the emergency department, though does have pain. Patient and family counseled regarding signs and symptoms for which I believe and urgent re-evaluation would be necessary. Patient with good understanding of and agreement to plan and is comfortable going home at this time This document was made in part using voice recognition software. While efforts are made to proofread this document, sound alike and grammatical errors may occur. Departure - Departure Disposition: 01 Home, Self Care Clinical Impression: Lumbar vertebral fracture Qualifiers: Encounter type: initial encounter Lumbar vertebra fracture level: L1 Fracture type: closed Fracture morphology: unspecified fracture morphology Qualified Code(s): S32.019A - Unspecified fracture of first lumbar vertebra, initial encounter for closed fracture Condition: Good Instructions: ED Fx Comp Vertebral Follow-Up: Em Barney MD [Primary Care Provider] - Within 1 week Prescriptions: traMADol [Ultram] 50 - 100 mg PO Q6H PRN #20 tablet PRN Reason: back pain Comments: Your prescription was sent to [facility] in [place]. You can use the medication as needed for pain. As we discussed you do have an L1 compression fracture on your CT scan. This does not need bracing or surgery, your doctor can perform repeat x-rays to ensure adequate healing. Your CT read is below. You may bear weight as tolerated. If you are having significant pain, a walker or cane may be helpful. I am prescribing a short course of narcotic pain medication for you. These are potentially dangerous and addictive medications that should be used carefully. These medications may constipate you. Take an auoi-atp-gfridtd stool softener (docusate) twice daily with plenty of water while taking these medications. If you go 24 hours without a bowel movement, take ofsa-ndp-gxevepa miralax, per package instructions. Do not drink or drive while taking these medications. If you received narcotic or sedating medications while in the emergency department, do not drive for 24 hours. Store this medication in a safe, secure place and out of reach of children. It is a violation of federal law to give or sell this medication to another person or to use in a manner other than prescribed. The ED will not refill narcotic prescriptions, including prescriptions lost or stolen. To dispose of unwanted medications: 1. [facility] at [address] in [place] has a medication drop box. They accept prescription medications (in pill form) Tuesday through Tuesday 9:00 a.m. to 5:00 p.m. 2. The [facility] accepts prescription medications (in pill form only) for disposal year round. Call for more information. 3. Contact the [facility] for the next [facility] sponsored prescription drug collection event. , [phone], or [phone]; PROCEDURE: LUMBAR SPINE WO INDICATIONS: fall, low back pain TECHNIQUE: Noncontrast 3 mm thick sections acquired from the T12 level to the sacrum. Sagittal and coronal reformats were constructed. For radiation dose reduction, the following was used: automated exposure control, adjustment of mA and/or kV according to patient size. COMPARISON: None. FINDINGS: Image quality: Excellent. Bones: There is preserved bony alignment. There is a minimally depressed superior endplate compression fracture of the L1 vertebral body with minimal cortical disruption anteriorly. No suspicious lytic or blastic bony lesions. Central spinal caliber is of normal overall caliber. No pars defects. T12-L1: There is a minimal disc bulge. There is minimal spinal canal narrowing. No neuroforaminal narrowing. L1-L2: Normal in appearance. L2-L3: No spinal canal or neuroforaminal narrowing. There is mild facet arthropathy bilaterally. L3-L4: No spinal canal or neuroforaminal narrowing. There is moderate facet arthropathy bilaterally. L4-L5: There is a minimal disc bulge. There is moderate to severe facet arthropathy bilaterally. No significant spinal canal or neuroforaminal narrowing. L5-S1: Minimal disc bulge. There is moderate to severe right and moderate left facet arthropathy. No significant spinal canal or neuroforaminal narrowing. Soft tissues: No retroperitoneal masses or hematomas. Visualized aorta is normal in caliber. There is mild dependent atelectasis. IMPRESSION: 1. Minimal superior endplate compression fracture of the L1 vertebral body. No associated retropulsed fragments in spinal canal. 2. No high-grade spinal canal or neuroforaminal narrowing. Discharge Date/Time: 07/25/22 22:23
[2022-07-25] MEDS: oxyCODONE/ACET 5/325 Prepack 4 PO STA (21:58)
[2022-07-25 22:24] VITALS: BP 148/89
== END 2022-07-25 22:23 | disposition home or self-care (01) ==
LOC: EDUNIT# → ED 18:33
DX: S32.019A Unspecified fracture of first lumbar vertebra, initial encounter for closed fracture (principal); W01.0XXA Fall on same level from slipping, tripping and stumbling without subsequent striking against object, initial encounter; Y92.009 Unspecified place in unspecified non-institutional (private) residence as the place of occurrence of the external cause; E78.00 Pure hypercholesterolemia, unspecified; Z79.899 Other long term (current) drug therapy
CPT/HCPCS: 99283; 99284

== ENCOUNTER 2022-10-19 12:56 | Outpatient (CLI) | payer MEDICARE ==
--- NOTE | 2022-10-19 17:50 | DEXA Report ---
PROCEDURE: Dexa Spine and/or Hip INDICATIONS: OSTEOPENIA TECHNIQUE: Dual energy x-ray absorptiometry (DXA) was performed on a SeeControl System. Regions measur ed are the AP Spine, femoral neck, and if needed forearm. COMPARISON: None FINDINGS: Lumbar Spine: Bone Mineral Density 0.997 g/cm/cm,T score -1.5. Osteopenia. Left Femoral Neck: Bone Mineral Density 0.698 g/cm/cm, T score -2.4. Osteopenia. Left Hip: Bone Mineral Density 0.747 g/cm/cm,T score -2.1. Osteopenia. (T score greater or equal to -1.0: NORMAL) (T score from -1.1 to -2.4: OSTEOPENIA) (T score less than or equal to -2.5 to: OSTEOPOROSIS) Impression: By WHO criteria, this patient has low bone density (osteopenia). Patients with diagnosis of osteoporosis or osteopenia should have regular bone mineral density assess ment. For those eligible for Medicare, routine testing is allowed once every 2 years. Testing frequ ency can be increased for patients who have rapidly progressing disease or for those who are receivin g medical therapy to restore bone mass. Reviewed by: Jayden Pate MD on 10/19/2022 5:49 PM PDT Approved by: Jayden Pate MD on 10/19/2022 5:49 PM PDT Station ID: [id number]
== END 2022-10-19 12:57 | disposition home or self-care (01) ==
LOC: DI 12:56
PROVIDERS: ATTEND Internal Medicine
DX: M85.89 Other specified disorders of bone density and structure, multiple sites (principal)

== ENCOUNTER 2023-03-05 11:36 | Outpatient (CLI) | payer MEDICARE ==
--- NOTE | 2023-03-06 12:30 | Ultrasound Report ---
PROCEDURE: Soft Tissue Head or Neck INDICATIONS: MULTIPLE THYROID NODULES TECHNIQUE: Real-time scanning was performed of the thyroid gland, with image documentation. COMPARISON: Thyroid ultrasound on August 25, 2021 FINDINGS: Right: Thyroid lobe measures 4 x 1.4 x 1.3 cm, and is homogeneous in echotexture. Left: Thyroid lobe measures 3.6 x 1.1 x 1.3 cm, and is homogenous in echotexture. Isthmus: 0.2 cm thick. Nodule number: 1 Location: Right upper lobe Size: 0.6 x 0.7 x 0.6 cm, previously 1.0 x 0.6 x 0.8 cm. Composition: Solid Echogenicity: Hypoechoic Shape: wider than tall Margins: Irregular Echogenic foci: Punctate Total points: 7 ACR TI-RADS category: 5, suspicious Nodule number: 2 Location: Left mid lobe Size: 0.6 x 0.3 x 0.4 cm, previously 0.4 x 0.3 x 0.4 cm. Composition: Predominantly solid Echogenicity: Hypoechoic Shape: wider than tall. Margins: Smooth Echogenic foci: None Total points: 4 ACR TI-RADS category: 4, moderately suspicious. Nodule number: 3 Location: Left lobe, inferior Size: 0.6 x 0.5 x 0.7 cm, previously 0.7 x 0.4 x 0.6 cm.. Composition: Solid Echogenicity: Isoechoic Shape: wider than tall Margins: Smooth Echogenic foci: None Total points: 3 ACR TI-RADS category: 3, mildly suspicious. IMPRESSION: 1. Right thyroid nodule has decreased in size measuring 0.6 x 0.7 x 0.6 cm, previously 1 x 0.6 x 0.8 cm. 2. Other small thyroid nodules are stable and do not meet criteria for FNA recommendation. ACR TI-RADS definitions and recommendations: TI-RADS 1 (benign): 0 points. FNA not needed. TI-RADS 2 (not suspicious): 2 points. FNA not needed. TI-RADS 3 (mildly suspicious): 3 points. "FNA if 2.5 cm or larger, follow up if 1.5 cm or larger (at 1, 3, and 5 years). TI-RADS 4 (moderately suspicious): 4-6 points. "FNA if 1.5 cm or larger, follow up if 1 cm or larger (at 1, 2, 3, and 5 years). TI-RADS 5 (highly suspicious): 7 points or more. "FNA if 1 cm or larger, follow up if 0.5 cm or larger (every year for 5 years). Reviewed by: Jostin Govea MD on 03/06/2023 12:29 PM PST Approved by: Jostin Govea MD on 03/06/2023 12:29 PM PST Station ID: [id number]
== END 2023-03-05 11:37 | disposition home or self-care (01) ==
LOC: DI 11:36
PROVIDERS: ATTEND Internal Medicine
DX: E04.2 Nontoxic multinodular goiter (principal)